=== PATIENT | male | born 1960 | race Caucasian/White ===

== ENCOUNTER 2018-07-20 19:28 | Emergency (ER) | payer OTHER ==
[~2018-07-20] VITALS: Ht 180.3 cm; Wt 101.6 kg
[2018-07-20 19:46] VITALS: Ht 180.3 cm; Wt 101.6 kg
[2018-07-20 20:16] LABS: microscopic required? NO
[2018-07-20 20:23] LABS: urine erythrocyte NEGATIVE (NEGATIVE)
[2018-07-20 20:44] LABS: BASOPHIL % 0.4 % (0-2); PLATELET COUNT 299 x10^3mcL (130-400); RED CELL DISTRIBUTION WIDTH 13.6 % (11.5-14.5)
[2018-07-20 20:50] LABS: CARBON DIOXIDE 27.4 mmol/L (21-32); CHLORIDE SERUM 110 mmol/L (98-107); CREATININE SERUM 1.3 mg/dL (0.7-1.3); GFR1 > 60 mL/min; GLUCOSE SERUM 139 mg/dL (74-106); POTASSIUM SERUM 4.4 mmol/L (3.5-5.1); SODIUM SERUM 147 mmol/L (136-145)
[2018-07-20 20:55] LABS: ALBUMIN 3.9 g/dL (3.4-5.0); ALKALINE PHOSPHATASE 113 U/L (46-116); ALT/SGPT 33 U/L (16-63); AST/SGOT 11 U/L (15-37); BILIRUBIN TOTAL 0.28 mg/dL (0.20-1.00); CHOLESTEROL 156 mg/dL (<200); LIPASE 123 IU/L (73-393); TOTAL PROTEIN, SERUM 7.3 g/dL (6.4-8.2); TRIGLYCERIDES 155 mg/dL (<150)
[2018-07-20 20:58] LABS: CHOLESTEROL/HDL RATIO 4.7; HDL CHOLESTEROL 33 mg/dL (40-60)
[2018-07-20 21:02] LABS: T3 TOTAL 0.88 ng/mL
[2018-07-20 21:14] LABS: FREE T4 0.88 ng/dL (0.76-1.46); FREE THYROXINE INDEX 2.1 ug/dL (1.4-4.5); T4(THYROXINE) 6.1 ug/dL (4.7-13.3)
[2018-07-21 00:24] VITALS: BP 142/88
== END 2018-07-21 00:24 | disposition home or self-care (01) ==
LOC: ED 19:28
PROVIDERS: Specialist
DX: R10.11 Right upper quadrant pain (principal); I10 Essential (primary) hypertension; E11.9 Type 2 diabetes mellitus without complications; Z95.1 Presence of aortocoronary bypass graft
CPT/HCPCS: 83880; 84439; J1885; J2405; J3010; J7030; Q0092; Q9967